=== PATIENT | female | born 1950 | race Caucasian/White ===

== ENCOUNTER → 2020-03-13 16:25 | Outpatient (CLI) | payer MEDICARE, SELFPAY ==
--- NOTE | ~2020-03-13 | XR_ITS ---
EXAMINATION: XR hand RT min 3V EXAM DATE: 03/13/2020 16:42 INDICATION: Osteoarthritis, pain and swelling 2nd mip joint, no known recent injury. TECHNIQUE: Right hand frontal, lateral and oblique projections obtained and reviewed. There is no pr ior study for comparison. FINDINGS: There is moderate 1st interphalangeal, 2nd distal interphalangeal and metacarpophalangeal p rimary osteoarthritis. Less osteoarthritis at the other digits. Surgical changes from trapezium resec tion. There are no bony erosions identified. Triangular fibrocartilage calcification. Chondrocalcinosis can be an age related finding, but with ot her possible etiologies including CPPD, parathyroid disorders, hemochromatosis, gout. IMPRESSION: 1. Polyarticular osteoarthritis. 2. Carpal surgical changes. Reviewed, dictated and finalized at location A. NISTRATIVE JUDGE
== END ==
PROVIDERS: Visit Provider Plastic Surgery
DX: M19.041 Primary osteoarthritis, right hand (principal)
CPT/HCPCS: 73130

== ENCOUNTER 2021-07-06 12:12 | Outpatient (CLI) | payer MEDICARE, SELFPAY ==
[2021-07-06 14:39] LABS: Urine Cotinine NEGATIVE
== END 2021-07-06 12:13 | disposition home or self-care (01) ==
LOC: ANHSURGERY 12:17
PROVIDERS: PCP Family Medicine; Visit Provider Orthopaedic Surgery
DX: Z01.812 Encounter for preprocedural laboratory examination (principal); M16.11 Unilateral primary osteoarthritis, right hip; Z51.81 Encounter for therapeutic drug level monitoring; Z79.899 Other long term (current) drug therapy
CPT/HCPCS: 80307; 86850; 86900; 86901; 87070; 87147; 87181; 87186

== ENCOUNTER 2021-07-18 00:26 | Day surgery (SDC) | payer MEDICARE, SELFPAY ==
[2021-07-06 12:27] VITALS: BMI 30.1
--- NOTE | 2021-07-06 13:11 | PC.NURSE ---
Report to the Outpatient Waiting Room, entrance under the green pavilion located off [facility], at time _1000 on date _07/18/21 . OR Time: 1200 . - You and your visitor will be asked a series of questions to screen for COVID 19 for your protection. - A mask is required within the hospital. Preoperative COVID Testing Requirements: No COVID Test needed if: (proof is required; if not received patient will have Rapid Test prior to entry) - Patient has received COVID Vaccine at least 14 days prior to procedure date or - Patient has positive COVID test result within last 90 days of surgery date. COVID Test needed if above criteria is not met If not COVID vaccinated a COVID test must be conducted within 72 hours of surgery and patient is asked to isolate self from time of testing until procedure. You will go to the [facility] for your COVID testing. The [facility] is located at the corner of [address] [facility]. You will only be called if COVID results are positive and your surgeon may reschedule your elective surgery date. Patients may have clear liquids (water, carbonated beverages, clear teas, apple juice) until 3 hours prior to surgery with a maximum of 20 ounces. - No food from midnight until time of surgery - Infants may have breast milk until 4 hours before surgery, formula 6 hours prior to surgery. - Children will be allowed to drink immediately following surgery. If applicable, please bring a bottle or sippy cup to assist with drinking. Juice, water, soda, and popsicles are readily available. For infants on formula, please bring formula the day of surgery. Pacifiers are allowed. Take the following medications with a SIP of water the morning of surgery: ___ALBUTEROL IF NEEDED,METOPROLOL,TRAMADOL IF NEEDED Medications to discontinue per physician PT STATES CONT._ASPIRIN_BUT DO NOT TAKE MORNING OF SURGERY.PT STATES ALL VITAMINS AND SUPPLEMENTS 7 DAYS PRE OP PER DR HUFFMAN Date to take last dose___07/14/21 Please no make-up, nail telugu, hairspray, perfume, deodorant, or body powder the day of surgery. No jewelry (including any body piercings) or valuables the day of surgery, leave them at home. Please take a shower or bath the night before, or the morning of, surgery with an antibacterial soap. Wear comfortable, loose fitting clothing. Children are encouraged to wear pajamas. - Jewelry must be removed prior to entering the operating room. Rings and piercings that are not removed may be cut off. - The hospital will not accept responsibility for valuables. - Please leave all valuables, including medications, at home the day of surgery. If you are going home after surgery, a licensed fleet driver must drive you home. - NO public transportation without another adult. - We recommend that an adult stay with you for 24 hours following discharge. - We also recommend that you do not drive, make important decision, drink alcoholic beverages, or take any drugs that were not prescribed by your health care provider for at least 24 hours after your discharge time. For Pediatric surgeries, we recommend two adults accompany the child home (only one inside the building at this time). One visitor will be allowed to accompany the patient into the hospital. Patients visitor will be instructed to remain with patient at all times or leave the building. We will allow the visitor to come back to the postoperative area when patient is ready. Follow any additional instructions given to you from your surgeon. VERBAL AND WRITTEN instructions given to PATIENT and asked if any additional questions and then verbalized understanding. Patient advised to call surgeon office or pre surgery nurse liaison [phone] if any additional questions.
[2021-07-06 13:26] VITALS: BP 171/81; PULSE 67; RESP 18; TEMP 36.9; O2SAT 100
--- NOTE | 2021-07-17 13:47 | WPDANESEPPF ---
Anes - Initial Pre Proc Eval Procedure: Operation Date: 07/18/21 12:00 Proposed Procedures p Right Total Hip Arthroplasty, Anterior Approach - Jon Jo MD Date/Time: 07/17/21 13:47 Surgeon: Jon Jo MD Pre Op Diagnosis: OA right hip Patient Data Age: 71 Gender: F Height: 1.57 m Weight: 74.7 kg Last Vital Signs Temp 36.9 C 07/06/21 13:26 Pulse 67 07/06/21 13:26 Resp 18 07/06/21 13:26 BP 171/81 H 07/06/21 13:26 Pulse Ox 100 07/06/21 13:26 Allergies Allergy/AdvReac Type Severity Reaction Status Date / Time lisinopril Allergy Severe Cough Verified 07/18/21 10:47 meperidine AdvReac Severe Nausea and Verified 07/18/21 10:47 Vomiting metformin AdvReac Diarrhea,NAUSEA Verified 07/18/21 10:47 AND VOMITING Home Medications Medication Instructions Recorded Confirmed Type acidophilus-pectin, citrus 1 cap PO DAILY 07/06/21 07/18/21 History [Acidophilus Probiotic] albuterol sulfate 2 puff INHALATION PRN PRN 07/06/21 07/18/21 History ascorbic acid (vitamin C) 500 mg PO DAILY 07/06/21 07/18/21 History aspirin [Adult Low Dose Aspirin] 81 mg PO DAILY 07/06/21 07/18/21 History atorvastatin 40 mg PO HS 07/06/21 07/18/21 History cholecalciferol (vitamin D3) 50 mcg PO DAILY 07/06/21 07/18/21 History coenzyme Q10 [CoQ-10] 200 mg PO DAILY 07/06/21 07/18/21 History cranberry 500 mg PO DAILY 07/06/21 07/18/21 History cyanocobalamin (vitamin B-12) 500 mcg PO DAILY 07/06/21 07/18/21 History esomeprazole magnesium 40 mg PO DAILY 07/06/21 07/18/21 History glucosamine sulfate [Glucosamine] 500 mg PO BID 07/06/21 07/18/21 History krill oil 500 mg PO DAILY 07/06/21 07/18/21 History loratadine 10 mg PO DAILY 07/06/21 07/18/21 History magnesium 400 mg PO DAILY 07/06/21 07/18/21 History melatonin 10 mg PO HS 07/06/21 07/18/21 History metoprolol tartrate 25 mg PO BID 07/06/21 07/18/21 History multivitamin [Multi-Vitamin] 1 tablet PO DAILY 07/06/21 07/18/21 History nystatin 1 applic TOPICAL BID 07/06/21 07/18/21 History triamcinolone acetonide [Kenalog] 1 applic TOPICAL BID 07/06/21 07/18/21 History vitamin E 45 mg PO DAILY 07/06/21 07/18/21 History zinc 50 mg PO DAILY 07/06/21 07/18/21 History Patient hx anesthesia problems: none Family hx anesthesia problems: none Results Review: All pre-operative results and documents have been reviewed as part of the pre-operative evaluation. [facility] Past Medical History Medical History Chronic GERD HTN (hypertension) Obesity Osteoarthritis TIA (transient ischemic attack) Social History Social History Smoking status: Never smoker Additional smoking assessment comments: DENIES ANY FORM OF TOBACCO USE Alcohol intake: current Alcohol use details: 2 DRINKS PER MONTH Living arrangements: with family Spiritual care concerns: No Anes - Eval Final PreProcedure Day of Procedure 07/17/21 13:47 Patient weight: obese Heart: regular rate and rhythm Lungs: clear to auscultation and normal air movement Airway: Mallampati scale class II Neurological: alert and oriented Last oral intake: >/= 8 hours ASA classification: III Emergent: no Anesthetic plan: proceed Anesthesia type and monitoring: general ETT Results Review: All pre-operative results and documents have been reviewed as part of the pre-operative evaluation. Informed Consent: The patient's anesthetic plan and its attendant risks and benefits were discussed with the patient/family/POA. Questions were solicited and answers provided to the satisfaction of the patient/family/POA.
[2021-07-18] VITALS (13 sets, daily range): BP systolic 113–175; BP diastolic 54–80; PULSE 63–88; RESP 10–22; TEMP 35.9–36.5; O2SAT 97–100; BMI 30.8
--- NOTE | ~2021-07-18 | XR_ITS ---
EXAMINATION: XR surgery orthopedic DATE: 07/18/2021 15:33 INDICATION: Anterior approach right total hip arthroplasty TECHNIQUE: Single frontal image of the right hip was obtained during procedure performed by Dr. Praveen bauer. Radiologist was not present for the imaging or procedure. The amount of fluoroscopy time used dur ing this procedure was 1.2 minutes. COMPARISON: None. FINDINGS: Right total hip arthroplasty which appears in near-anatomic alignment. Small high attenuation likely suture anchor at the right pubic body. No fracture. IMPRESSION: 1. Expected appearance during right total hip arthroplasty. See procedure note for further detail. Reviewed, dictated and finalized at location A.
--- NOTE | ~2021-07-18 | XR_ITS ---
EXAMINATION: XR hip RT 1V w AP pelvis DATE: 07/18/2021 15:55 INDICATION: Total right hip arthroplasty. Postop. TECHNIQUE: An anteroposterior view of the pelvis and single view of right hip were obtained. COMPARISON: None. FINDINGS: There is a total right hip arthroplasty in near-anatomic alignment. No fracture. There is m ild left hip osteoarthritis. There is a surgical drain the right hip. There are suture anchors in the pubic bones. IMPRESSION: 1. Total right hip arthroplasty in near-anatomic alignment. Reviewed, dictated and finalized at location B.
--- NOTE | 2021-07-18 09:52 | PM.IMHP ---
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 She has been having symptoms in her right leg for over 9 months. She has had x-rays done of the right hip which show moderately severe arthritis. She has had an MRI scan and a CT scan of the hip showing significant cystic changes in the subchondral bone in the acetabulum as well. she has tried different nonsurgical treatment for the symptoms in her leg. Unfortunately she has not had substantial improvement. The option of total arthroplasty was discussed with her and she feels that she is having enough symptoms on a daily basis that she would like to proceed with that and presents today for that. Chief Complaint: Right hip DJD Review of Systems Review of Systems: All systems reviewed & are unremarkable except as noted in HPI and below PMFSH Past Medical History Medical History Chronic GERD HTN (hypertension) Obesity Osteoarthritis TIA (transient ischemic attack) Social History Social History Smoking status: Never smoker Additional smoking assessment comments: DENIES ANY FORM OF TOBACCO USE Alcohol intake: current Alcohol use details: 2 DRINKS PER MONTH Living arrangements: with family Spiritual care concerns: No Meds Home Medications and Allergies Home Medications Medication Instructions Recorded Confirmed Type acidophilus-pectin, citrus 1 cap PO DAILY 07/06/21 07/06/21 History [Acidophilus Probiotic] albuterol sulfate 2 puff INHALATION PRN PRN 07/06/21 07/06/21 History ascorbic acid (vitamin C) 500 mg PO DAILY 07/06/21 07/06/21 History aspirin [Adult Low Dose Aspirin] 81 mg PO DAILY 07/06/21 07/06/21 History atorvastatin 40 mg PO HS 07/06/21 07/06/21 History cholecalciferol (vitamin D3) 50 mcg PO DAILY 07/06/21 07/06/21 History coenzyme Q10 [CoQ-10] 200 mg PO DAILY 07/06/21 07/06/21 History cranberry 500 mg PO DAILY 07/06/21 07/06/21 History cyanocobalamin (vitamin B-12) 500 mcg PO DAILY 07/06/21 07/06/21 History esomeprazole magnesium 40 mg PO DAILY 07/06/21 07/06/21 History glucosamine sulfate [Glucosamine] 500 mg PO BID 07/06/21 07/06/21 History krill oil 500 mg PO DAILY 07/06/21 07/06/21 History loratadine 10 mg PO DAILY 07/06/21 07/06/21 History magnesium 400 mg PO DAILY 07/06/21 07/06/21 History melatonin 10 mg PO HS 07/06/21 07/06/21 History metoprolol tartrate 25 mg PO BID 07/06/21 07/06/21 History multivitamin [Multi-Vitamin] 1 tablet PO DAILY 07/06/21 07/06/21 History nystatin 1 applic TOPICAL BID 07/06/21 07/06/21 History tramadol 50 mg PO PRN PRN 07/06/21 07/06/21 History triamcinolone acetonide [Kenalog] 1 applic TOPICAL BID 07/06/21 07/06/21 History vitamin E 45 mg PO DAILY 07/06/21 07/06/21 History zinc 50 mg PO DAILY 07/06/21 07/06/21 History Allergies Allergy/AdvReac Type Severity Reaction Status Date / Time lisinopril Allergy Severe Cough Verified 07/06/21 12:31 meperidine AdvReac Severe Nausea and Verified 07/17/21 13:54 Vomiting metformin AdvReac Diarrhea,NAUSEA Verified 07/06/21 12:31 AND VOMITING Exam Narrative: 71-year-old female alert pleasant. Patient walks with a mild limp. She complains of medial thigh and medial knee pain with Weightbearing on the right leg. Her right hip flexes to 125 with groin pain internal rotation to 35 and external rotation 40? all with mild lateral hip soreness. She has severe groin pain with Stinchfield maneuver. She has mild weakness with abductor testing in lateral position. Mild tenderness over the greater trochanter to palpation. Has 5/5 strength in all muscle groups right lower extremity. Normal light touch sensation right lower extremity. Skin around the hip and groin crease for all normal. 2+ dorsalis pedis pulse and posterior tibial artery pulse
[2021-07-18] MEDS: LACTATED RINGERS 1,000 ML 30 ML IV CONT ×2 (10:35→15:58)
[2021-07-18] MEDS: ACETAMINOPHEN 500 MG TABLET 1000 MG PO ×3 (10:36→23:22)
[2021-07-18] MEDS: TRANEXAMIC ACID 1,000MG/ISO100 1,000 MG/100 ML BAG 200 MG IVPB (10:36)
--- NOTE | 2021-07-18 11:47 | WPDHPUPDATE1 ---
History and Physical Update Update Date/Time: 07/18/21 11:47 History and Physical has been reviewed, including an updated exam of the patient. There are NO changes in the patient's condition. Risks, benefits, and alternatives have been discussed and questions answered. Patient agrees to proceed with procedure.
[2021-07-18] MEDS: ceFAZolin 2 GM/D5W 50 ML 2 GM/50 ML BAG IVPB (12:10)
[2021-07-18] MEDS: ceFAZolin SODIUM 1 GM VIAL 3 GM IRRIGATION (13:07)
[2021-07-18] MEDS: TRANEXAMIC ACID 1,000 MG/10 ML AMPUL 1000 MG IV PUSH (15:23)
[2021-07-18] MEDS: ceFAZolin SODIUM 1 GM VIAL IV PUSH (15:25)
--- NOTE | 2021-07-18 15:53 | W.PM.PROC2 ---
Procedure Note - Detailed Date of Procedure 07/18/21 Pre-op Diagnosis OA right hip Post-op Diagnosis Same Procedure Performed Right total hip arthroplasty Surgeon Jon Jo MD Animal Care Specialist Celia Anesthesia General Description of Procedure Patient was brought to the operating room and general anesthesia was administered. She received 2 g of Ancef weight based vancomycin and 1 g of tranexamic acid preoperatively. Boots were applied to the feet carefully padded and she was transferred to the [facility] [place] table and the right hip prepped draped usual fashion. A 10 cm longitudinal incision was made starting 3 cm lateral to the ASIS. Dissection was carried down to the fascia over the tensor fascia nisha which was longitudinally incised elevated off the anterior 1/2 of the TFL muscle. The main single bundle of vessels from ascending lateral femoral circumflex vessels were isolated ligated with suture divided. Retractor was placed in the anterior capsule and the hip abducted internally rotated and the gluteus minimus elevated off the lateral capsule. An inverted T capsulotomy was performed. Femoral neck osteotomy was made according to preoperative templating. The femoral head measured 43 mm in diameter. The acetabulum was exposed. There was severe maceration of the inner surface of the acetabular labrum circumferentially and evidence of chondrocalcinosis that we saw on x-rays. Labrum was excised remaining articular cartilage curetted. The femoral neck osteotomy was seen under fluoro to be at the proper height. The femur was externally rotated and extended and we incised the interval between piriformis tendon and conjoined tendon which allowed the piriformis to flip. We did not recess the conjoined tendon as hip did not seem to be tight enough to warrant with the leg back in the horizontal position external rotation and traction the acetabulum was exposed and prepared. We medialized to the medial wall with the 45 Reamer. Her acetabular fossa was very shallow as we saw on the x-ray view. The 46 trial was tight we reamed lightly with the 46 Reamer and chose the 46 pinnacle shell. This seated fully but did not get the usual purchase that I would expect and this left the posterior shell a bit prominent more than desirable and superolateral prominence of the shell due to the shallowness of the socket. We were flush with the ileal ischial line that I felt we could ream in a little bit farther and get better fixation and bony contact. We we did this with a 45 Reamer reamed in about 3 mm more in line with the direction of the shelf and tried to reinsert the 46 shell but it would not seat. It became tight but remained about 2 mm proud from full seating and would not go further. We had adequate purchase but I did not feel the bone contact is optimal therefore we reamed lightly with the 46 Reamer again and after thorough irrigation of the cup again we placed it and this time the cup seated to within about 0.5 mm of contact with the medial wall with excellent press fit and much better coverage and the security of the fixation seemed excellent. We placed a single screw into the ilium and impacted the 28 mm inner diameter polyethylene liner. The cup was placed at 40? of abduction anteversion such that the anterior rim of the cup was flush with the anterior rim of the acetabular fossa this left the posterior rim of few mm proud. The femur was externally rotated and extended. We broached to a size 3 which seemed to give good purchase and torsional stability. We trialed the and we found that the hip required more offset than our preoperative templating I little bit. We checked the torsional stability again and I could see a little bit of wiggle in the 3 at this point and we were able to see before which is a very tight nice fit. On trialing we found that the high offset 4 stem with the +1 head recreated the leg lengths and gave appropriate stability the size 4 high offset Act
[2021-07-18] MEDS: fentaNYL CITRATE INJ (*CRX) 100 MCG/2 ML VIAL 25 MCG IV PUSH ×4 (16:44→16:53)
--- NOTE | 2021-07-18 17:20 | ADMGEN ---
This patient, Frida Schmidt, was admitted to Medical Room 248-. Patient/family oriented to hospital policies and general routines including ID bracelet, bed and alarms, visiting hours, pain management, procedures, bathroom and other care routines, personal items, smoking policy, room service/diet, and visiting hours. Information on how to activate the Rapid Response Team has been discussed. Patient/Family are encouraged to report perceived risks to care and to ask questions if they do not understand what they are told or what they should do.
[2021-07-18] MEDS: SENNA/DOCUSATE SODIUM TABLET 2 TAB PO (17:59)
[2021-07-18] MEDS: oxyCODONE HCL (*CRX) 5 MG TAB IR PO (18:01)
[2021-07-18] MEDS: ALBUTEROL SULFATE (*SP) AEROSOL 1 PUFF 2 PUFF INHALATION (18:06)
[2021-07-18] MEDS: METOPROLOL TARTRATE 25 MG TABLET PO (20:17)
[2021-07-18] MEDS: FAMOTIDINE 20 MG TABLET PO (20:18)
[2021-07-18] MEDS: ATORVASTATIN 40 MG TABLET PO (20:18)
[2021-07-18] MEDS: ONDANSETRON INJ 4 MG/2 ML VIAL IV PUSH (21:11)
[2021-07-18 22:13] LABS: Glucose Point of Care 207 mg/dl (65-105)
[2021-07-18] MEDS: diphenhydrAMINE HCl CAP 25 MG CAPSULE 50 MG PO (23:23)
[2021-07-19] MEDS: oxyCODONE HCL (*CRX) 5 MG TAB IR PO ×5 (00:06→13:01)
[2021-07-19] MEDS: MORPHINE SULFATE (*CRX) 2 MG/ML INJ IV PUSH (01:19)
[2021-07-19 01:53] VITALS: BP 136/64; PULSE 91; RESP 14; TEMP 36.4; O2SAT 99
[2021-07-19 04:54] VITALS: BP 116/58; PULSE 92; RESP 16; TEMP 36.4; O2SAT 99
[2021-07-19] MEDS: ACETAMINOPHEN 500 MG TABLET 1000 MG PO ×2 (05:23→12:08)
[2021-07-19 05:34] LABS: Basophils Percent Auto 0.2 % (0.2-1.2); Hematocrit 31.6 % (37.0-47.0); Hemoglobin 10.4 g/dL (12.0-15.0); Immature Granulocyte Absolute 0.06 K/mm3 (0.00-0.031); Immature Granulocyte Percent A 0.4 % (0-0.5); Lymphocytes Absolute Auto 1.21 K/mm3 (0.9-3.2); Lymphocytes Percent Auto 8.3 % (18.3-44.2); Mean Corpuscular HGB Conc 32.9 g/dl (32-36); Mean Corpuscular Hemoglobin 29.5 pg (26-34); Mean Corpuscular Volume 89.5 fl (80-100); Mean Platelet Volume 10.9 fl (7.4-10.4); Monocytes Absolute Auto 1.3 K/mm3 (0.1-0.6); Monocytes Percent Auto 8.5 % (2.6-8.5); Neutrophils Absolute Auto 12.1 K/mm3 (1.3-6.7); Neutrophils Percent Auto 82.6 % (45.5-73.1); Platelet Count Result 193 k/mm3 (150-375); Red Blood Count 3.53 M/mm3 (4.2-5.4); Red Cell Distribution Width 12.6 % (11.5-14.5); White Blood Count 14.6 K/mm3 (4.5-10.0)
[2021-07-19 05:56] LABS: Anion Gap 7 mmol/L (8-16); Blood Urea Nitrogen 13 mg/dL (7-17); Calcium 8.4 mg/dL (8.4-10.2); Carbon Dioxide 23 mmol/L (22-30); Chloride 99 mmol/L (98-107); Estimated CRCL calculation 52 ml/min; Estimated Glomerular Filt Rate > 60; Glucose 121 mg/dL (65-110); Potassium 4.1 mmol/L (3.4-5.0); Sodium 129 mmol/L (137-145)
--- NOTE | 2021-07-19 07:26 | PM.PNORT ---
Subjective Subjective Date/Time Seen: 07/19/21 07:26 POD 1 alert avss, drain is out and dressing changed-incision is dry, NVI, pt was having nausea overnight-no vomiting, had pain control issues overnight. pain is well controlled now, has not been up yet, pt is wanting to go home today, labs-noted, pt will work with PT today and plan to send home when IV abx are done Objective Data Vital Signs Vital Signs: Vital Signs - 24 hr 07/18/21 10:50 07/18/21 15:58 07/18/21 16:00 Temperature 36.1 C L 36.5 C Pulse Rate 76 72 86 Respiratory Rate 18 10 L 14 Blood Pressure 175/80 H 113/56 L 130/76 Pulse Oximetry 100 100 100 07/18/21 16:15 07/18/21 16:30 07/18/21 16:45 Temperature Pulse Rate 82 71 63 Respiratory Rate 15 16 12 Blood Pressure 141/79 H 127/61 128/60 Pulse Oximetry 100 100 100 07/18/21 17:00 07/18/21 17:10 07/18/21 17:30 Temperature 35.9 C L Pulse Rate 63 78 65 Respiratory Rate 12 15 14 Blood Pressure 124/54 L 141/66 H 140/64 Pulse Oximetry 98 97 100 07/18/21 17:45 07/18/21 18:15 07/18/21 18:49 Temperature 36.1 C L 36.2 C L 36.4 C Pulse Rate 63 83 88 Respiratory Rate 14 22 H 16 Blood Pressure 144/62 H 140/63 147/75 H Pulse Oximetry 100 100 98 07/18/21 20:17 07/19/21 01:53 07/19/21 04:54 Temperature 36.4 C 36.4 C Pulse Rate 88 91 92 Respiratory Rate 14 16 Blood Pressure 136/64 116/58 L Pulse Oximetry 99 99 Intake/Output Intake/Output: Intake & Output 07/16/21 07/17/21 07/18/21 07/19/21 23:59 23:59 23:59 23:59 Intake Total 490 600 Output Total 800 2100 Balance -310 -1500 Meds/Results Medications: Active Medications Generic Name Dose Route Start Last Admin Trade Name Freq PRN Reason Stop Dose Admin Acetaminophen 1,000 mg 07/18/21 18:00 07/19/21 05:23 Acetaminophen 500 Mg Tablet PO 1,000 mg Q6HR WAGNER Administration Al Hydrox/Mg Hydrox/Simethicone 30 ml 07/18/21 17:04 Mag Hydrox/Al Hydrox/Simeth 30 Ml Udc PO Q6H PRN Indigestion Albuterol 2 puff 07/18/21 17:04 07/18/21 18:06 Albuterol Sulfate (*Sp) Aerosol 1 Puff INHALATION 2 puff PRN PRN Administration Shortness Of Breath Apixaban 2.5 mg 07/19/21 09:00 Apixaban 2.5 Mg Tablet PO 08/22/21 21:01 Q12HR WAGNER Atorvastatin Calcium 40 mg 07/18/21 21:00 07/18/21 20:18 Atorvastatin 40 Mg Tablet PO 40 mg HS WAGNER Administration Celecoxib 200 mg 07/19/21 09:00 Celecoxib 200 Mg Capsule PO DAILY WAGNER Famotidine 20 mg 07/18/21 21:00 07/18/21 20:18 Famotidine 20 Mg Tablet PO 20 mg Q12HR WAGNER Administration Hydroxyzine HCl 50 mg 07/18/21 17:04 Hydroxyzine Hcl 25 Mg Tablet PO Q4H PRN Itching Vancomycin HCl 1,000 mg in 250 mls @ 250 mls/hr 07/18/21 23:00 07/19/21 00:00 Vancomycin 1,000 Mg/D5w 250 Ml IVPB 07/19/21 11:59 Infused Q12H WAGNER Infusion Cefazolin Sodium 1 gm in 50 mls @ 100 mls/hr 07/18/21 20:00 07/19/21 05:20 Ancef 1 Gm/D5w 50 Ml Pm IVPB 07/19/21 12:29 Infused Q8H WAGNER Infusion Loratadine 10 mg 07/19/21 09:00 Loratadine 10 Mg Tablet PO DAILY WAGNER Metoprolol Tartrate 25 mg 07/18/21 21:00 07/18/21 20:17 Metoprolol Tartrate 25 Mg Tablet PO 25 mg Q12HR WAGNER Administration Morphine Sulfate 2 mg 07/18/21 17:04 07/19/21 01:19 Morphine Sulfate (*Crx) 2 Mg/Ml Inj IV PUSH 2 mg Q3H PRN Administration Pain Rated 7-10 Naloxone HCl 0.1 mg 07/18/21 17:04 Naloxone Hcl 0.4 Mg/Ml Vial IV PUSH Q2M PRN Opiate Reversal Ondansetron HCl 4 mg 07/18/21 17:04 07/18/21 21:11 Ondansetron Inj 4 Mg/2 Ml Vial IV PUSH 4 mg Q4H PRN Administration Nausea And Vomiting Oxycodone HCl 5 mg 07/18/21 17:04 07/18/21 18:01 Oxycodone Hcl (*Crx) 5 Mg Tab Ir PO 5 mg Q4H PRN Administration Pain Rated 4-6 Oxycodone HCl 5 mg 07/18/21 21:00 07/19/21 04:46 Oxycodone Hcl (*Crx) 5 Mg Tab Ir PO 5 mg Q4HR WAGNER Administration Polyethylene Glycol 17 gm 0
--- NOTE | 2021-07-19 07:36 | PM.DS ---
DS: Admitting Diagnosis Discharge Date 07/19 Admitting Diagnosis Right hip DJD DS: Summary Hospital Course Hospital Course: Stable Time Spent with Patient Time attestation: Total time spent providing and/or coordinating discharge services: 71-year-old female who underwent right anterior total arthroplasty on 07/18. Went to procedure without complications. Postoperatively she been afebrile vital signs was stable. She did have some nausea overnight on day of surgery. Most likely contributing to narcotics on an empty stomach. No episodes of vomiting. The patient is weight-bearing as tolerated. The drain is out. Her incision is dry. Neurovascularly she is intact. Hemoglobin is 10.4 postop day 1. Patient will work with therapy she continues to do well she will be discharged home on 07/19. Patient is on scheduled Tylenol as well as oxycodone 5 mg for pain control. She is on 10 day course of Celebrex 200 mg. He is also on a 2 week course of Bactrim DS due to a positive nasal swab for MRSA. She also go home on Senokot MiraLax for constipation. She is on Eliquis for DVT prophylaxis for 5 weeks. Patient was advised any questions or concerns when she goes home she is to call the office otherwise we will see her at her point to date. DS: Data Data Completed and Pending Labs on day of discharge: Labs from last 24 hours 07/19/21 07/19/21 07/18/21 04:54 04:54 22:08 WBC 14.6 H RBC 3.53 L Hgb 10.4 L Hct 31.6 L MCV 89.5 MCH 29.5 MCHC 32.9 RDW 12.6 Plt Count 193 MPV 10.9 H Immature Gran % (Auto) 0.4 Neut % (Auto) 82.6 H Lymph % (Auto) 8.3 L [place] % (Auto) 8.5 Eos % (Auto) 0.0 Baso % (Auto) 0.2 Lymph # (Auto) 1.21 [place] # (Auto) 1.3 H Eos # (Auto) 0.0 Baso # (Auto) 0.0 Abs Immat Gran (auto) 0.06 H Absolute Neuts (auto) 12.1 H Absolute Nucleated RBC 0.0 Nucleated RBC % 0.0 Sodium 129 L Potassium 4.1 Chloride 99 Carbon Dioxide 23 Anion Gap 7 L BUN 13 Creatinine 0.80 Estim Creat Clear Calc 52 Estimated GFR > 60 Glucose 121 H POC Capillary Glucose 207 H Calcium 8.4 Discharge Plan Discharge Patient Disposition: Home, Self-Care Discharge Instructions: [facility], [place] [id number] [place] [address] POST-OPERATIVE DISCHARGE INSTRUCTIONS ANTERIOR TOTAL HIP ARTHROPLASTY 1. Move toes/feet up and down every hour while awake. 2. Be up walking every hour while awake. 3. Use cane in hand opposite of side of hip surgery or walker as comfort allows. Avoid sitting in a chair unless eating, receiving visitors or using the toilet. 4. When resting, lie on back with leg elevated above heart to minimize swelling. Significant swelling could indicate a blood clot and if this occurs, call the office (or go to the ER) to have a venous ultrasound performed. 5. Wound Care: Keep dry sponge on wound for 2 weeks. Use minimal tape. 6. May shower with dressing off. Patient Instructions: Apixaban (By mouth) Follow-up/Referrals: Jon Jo MD [Physician] - Keep Reg. Scheduled Appt. Discharge Medications: New acetaminophen 500 mg Tablet 1,000 mg PO Q6HR Qty: 90 RF: 0 Eliquis 2.5 mg Tablet 2.5 mg PO Q12HR Qty: 27 RF: 0 celecoxib [Celebrex] 200 mg Capsule 200 mg PO DAILY Qty: 10 RF: 0 sennosides-docusate sodium [Senokot-S] 8.6-50 mg Tablet 2 tab-cap PO BID Qty: 60 RF: 0 oxycodone 5 mg Tablet 5 mg PO Q4HR Qty: 40 RF: 0 polyethylene glycol 3350 [Miralax] 17 gram Powder In Packet 17 g PO QAM Qty: 30 RF: 0 sulfamethoxazole-trimethoprim 800-160 mg Tablet 2 tablet PO Q12HR Qty: 28 RF: 0 Continued albuterol sulfate 90 mcg/actuation HFA aerosol inhaler 2 puff INHALATION PRN PRN (Reason: Shortness Of Breath) RF: 0 atorvastatin 40 mg tablet 40 mg PO HS RF: 0 triamcinolone acetonide
[2021-07-19] MEDS: APIXABAN 2.5 MG TABLET PO (09:16)
[2021-07-19] MEDS: CELECOXIB 200 MG CAPSULE PO (09:16)
[2021-07-19] MEDS: CHOLECALCIFEROL 1,000 UNITS TABLET 2000 UNITS PO (09:16)
[2021-07-19] MEDS: polyethylene glycoL 3350 17 GM POWD.PACK PO (09:17)
[2021-07-19] MEDS: SENNA/DOCUSATE SODIUM TABLET 2 TAB PO (09:17)
[2021-07-19] MEDS: LORATADINE 10 MG TABLET PO (09:17)
[2021-07-19] MEDS: FAMOTIDINE 20 MG TABLET PO (09:17)
[2021-07-19 09:18] VITALS: PULSE 80
[2021-07-19] MEDS: METOPROLOL TARTRATE 25 MG TABLET PO (09:18)
[2021-07-19 09:27] VITALS: PULSE 93; RESP 16; TEMP 36.4; O2SAT 98
[2021-07-19 09:39] VITALS: BP 120/60
--- NOTE | 2021-07-19 10:56 | WPDANESPN ---
Anes - Prog Note Post-Op Date/Time: 07/19/21 10:56 Cardiovascular status: normal Respiratory status: normal Airway patency: baseline Mental status: baseline Post-Op hydration status: normal Vital Signs: Last Vital Signs Temp 36.4 C 07/19/21 09:27 Pulse 93 07/19/21 09:27 Resp 16 07/19/21 09:27 BP 120/60 07/19/21 09:39 Pulse Ox 98 07/19/21 09:27 Pain Score (VAS): 06/07 I/O: Intake & Output 07/18/21 07/19/21 07/19/21 23:59 07:59 15:59 Intake Total 440 600 240 Output Total 800 2100 Balance -360 -1500 240 Laboratory Tests 07/19/21 04:54 07/19/21 04:54 07/18/21 07/19/21 07/19/21 22:08 04:54 04:54 WBC 14.6 H RBC 3.53 L Hgb 10.4 L Hct 31.6 L MCV 89.5 MCH 29.5 MCHC 32.9 RDW 12.6 Plt Count 193 MPV 10.9 H Immature Gran % (Auto) 0.4 Neut % (Auto) 82.6 H Lymph % (Auto) 8.3 L [place] % (Auto) 8.5 Eos % (Auto) 0.0 Baso % (Auto) 0.2 Lymph # (Auto) 1.21 [place] # (Auto) 1.3 H Eos # (Auto) 0.0 Baso # (Auto) 0.0 Abs Immat Gran (auto) 0.06 H Absolute Neuts (auto) 12.1 H Absolute Nucleated RBC 0.0 Nucleated RBC % 0.0 Sodium 129 L Potassium 4.1 Chloride 99 Carbon Dioxide 23 Anion Gap 7 L BUN 13 Creatinine 0.80 Estim Creat Clear Calc 52 Estimated GFR > 60 Glucose 121 H POC Capillary Glucose 207 H Calcium 8.4 Post-procedural complaints: none Patient Feedback: Patient satisfied with anesthetic care.
--- NOTE | 2021-07-19 11:03 | PCCCNOTE ---
On 07/19/21, the student, [Yesenia Gracia], provided care and completed [facility] documentation on this patient. I have reviewed the student's documentation and agree with the findings.
--- NOTE | 2021-07-19 14:00 | PC.NURSE ---
On 07/19/21, the student, [Eugene Tucker, Robyn Lawson], provided care and completed [facility] documentation on this patient. I have reviewed the student's documentation and agree with the findings.
== END 2021-07-19 13:44 | disposition home or self-care (01) ==
LOC: ANHSURGERY 09:56 → ANH2MED 17:13
PROVIDERS: Physician Assistant Surgical; Visit Provider Orthopaedic Surgery
PROC: (CPT 27130; principal; 2021-07-18 12:00)
DX: M16.11 Unilateral primary osteoarthritis, right hip (principal); G89.18 Other acute postprocedural pain; R11.0 Nausea; I10 Essential (primary) hypertension; K21.9 Gastro-esophageal reflux disease without esophagitis; Z86.73 Personal history of transient ischemic attack (TIA), and cerebral infarction without residual deficits; E66.9 Obesity, unspecified; Z68.30 Body mass index [BMI] 30.0-30.9, adult; Z79.51 Long term (current) use of inhaled steroids; Z79.82 Long term (current) use of aspirin
CPT/HCPCS: 27130; 36415; 73501; 80048; 80307; 82948; 85025; 86850; 86900; 86901; 87070; 87147; 87181; 87186; 94640; 97110; 97161; 97165; 97535; A9270; C1713; C1776; J0171; J0690; J1100; J1170; J2250; J2270; J2370; J2405; J2704; J2710; J2795; J3010; J3370; J7120

== ENCOUNTER 2021-07-28 13:02 | Outpatient (CLI) | payer MEDICARE, SELFPAY ==
--- NOTE | ~2021-07-28 | US_ITS ---
US venous doppler LE RT DATE: 07/28/2021 13:31 INDICATION: Postoperative swelling of right lower extremity TECHNIQUE: Real-time and color flow imaging and Doppler analysis of the veins of the right lower extr emity COMPARISON: None FINDINGS: Right greater saphenous vein is patent. There is spontaneous and phasic flow and normal aug mentation and color flow signal and normal compression of the deep veins of the right lower extremity . IMPRESSION: No evidence of deep venous thrombosis of right lower extremity Reviewed, dictated and finalized at [facility] Reviewed, dictated and finalized at [facility].
== END 2021-07-28 13:03 | disposition home or self-care (01) ==
PROVIDERS: Visit Provider Orthopaedic Surgery
DX: M79.89 Other specified soft tissue disorders (principal)
CPT/HCPCS: 93971

== ENCOUNTER 2023-05-25 11:27 | Emergency (ER) | payer MEDICARE, SELFPAY ==
[2023-05-25 12:03] VITALS: BP 155/99; PULSE 77; RESP 16; TEMP 36.4; O2SAT 99
--- NOTE | 2023-05-25 12:28 | ED.URI ---
HPI - URI/Sore Throat General Chief Complaint: Upper Respiratory Infection Stated Complaint: SORE THROAT/SINUS DRAINAGE/COUGH Time Seen by Provider: 05/25/23 11:31 Source: patient Mode of arrival: ambulatory Limitations: no limitations History of Present Illness HPI Narrative: Cyndi is a 73-year-old female patient presenting to the clinic today with complaints of scratchy throat, sinus drainage and cough x1 day. She reports she is wanting to be treated for a sinus infection as she develops recurrent sinus infection. States she is going out of town tomorrow for 2 months tomorrow. She denies any fever, chills, or body aches MD elicited complaint: cough, sore throat and nasal congestion Related Data Home Medications Medication Instructions Recorded Confirmed acidophilus 100 million 1 cap PO DAILY 07/06/21 11/25/22 cell-pectin, citrus 10 mg capsule albuterol sulfate 90 mcg/actuation 2 puff inhalation PRN PRN 07/06/21 11/25/22 aerosol inhaler Shortness Of Breath ascorbic acid (vitamin C) 500 mg 500 mg PO DAILY 07/06/21 11/25/22 chewable tablet atorvastatin 40 mg tablet 40 mg PO HS 07/06/21 11/25/22 cholecalciferol (vitamin D3) 50 50 mcg PO DAILY 07/06/21 11/25/22 mcg (2,000 unit) tablet coenzyme Q10 100 mg capsule 200 mg PO DAILY 07/06/21 11/25/22 (CoQ-10) cranberry 500 mg capsule 500 mg PO DAILY 07/06/21 11/25/22 cyanocobalamin (vitamin B-12) 500 500 mcg PO DAILY 07/06/21 11/25/22 mcg tablet esomeprazole magnesium 40 mg 40 mg PO DAILY 07/06/21 11/25/22 capsule,delayed release glucosamine sulfate 500 mg tablet 500 mg PO BID 07/06/21 11/25/22 (Glucosamine) loratadine 10 mg tablet 10 mg PO DAILY 07/06/21 11/25/22 magnesium 200 mg tablet 400 mg PO DAILY 07/06/21 11/25/22 melatonin 10 mg tablet,extended 10 mg PO HS 07/06/21 11/25/22 release metoprolol tartrate 25 mg tablet 25 mg PO BID 07/06/21 11/25/22 multivitamin 1 tablet PO DAILY 07/06/21 11/25/22 nystatin 100,000 unit/gram topical 1 applic topical BID 07/06/21 11/25/22 ointment triamcinolone acetonide 0.5 % 1 applic topical BID 07/06/21 11/25/22 topical ointment vitamin E 400 unit tablet 45 mg PO DAILY 07/06/21 11/25/22 zinc 50 mg capsule 50 mg PO DAILY 07/06/21 11/25/22 Allergies Allergy/AdvReac Type Severity Reaction Status Date / Time lisinopril Allergy Severe Cough Verified 05/25/23 11:58 meperidine AdvReac Severe Nausea and Verified 05/25/23 11:58 Vomiting metformin AdvReac Diarrhea,NAUSEA Verified 05/25/23 11:58 AND VOMITING Review of Systems Review of Systems: Pertinent positives per HPI. Patient denies any fever, chills, rash, headache, visual changes, dizziness, shortness of breath, chest pain, palpitations, nausea, vomiting, diarrhea, constipation, abdominal pain, or any urinary issues. [facility] Past Medical History Medical History (Updated 05/25/23 @ 12:30 by Mahin Cantrell APRN) Back pain pinched nerve L4-L5 Chronic GERD HTN (hypertension) Obesity Osteoarthritis Screening mammogram, encounter for TIA (transient ischemic attack) Surgical History Surgical History H/O: hysterectomy (~03/31/07) JOSE LUIS BSO & LAP JEANNA - 8 CM FIBROID History of right hip replacement (07/18/21) Social History Social History Smoking status: Never smoker Additional smoking assessment comments: DENIES ANY FORM OF TOBACCO USE Alcohol intake: current Alcohol use details: 2 DRINKS PER MONTH Substance use: never Substance use type: does not use Lack of Transportation: No Lack of Food: Never True Current Housing: I Have Housing Concerned About Future Housing: No Difficulty Paying Gas/Electric Bills: No Difficulty Paying for Meds: No Currently Unemployed: No Education: Associate Degree Difficulty w/ Childcare or Family Care: No Living arrangements: other Additional living arrang
== END 2023-05-25 12:41 | disposition home or self-care (01) ==
PROVIDERS: Emergency Provider Nurse Practitioner Family
DX: J06.9 Acute upper respiratory infection, unspecified (principal); Z20.822 Contact with and (suspected) exposure to COVID-19; K21.9 Gastro-esophageal reflux disease without esophagitis; I10 Essential (primary) hypertension; E66.9 Obesity, unspecified; Z68.30 Body mass index [BMI] 30.0-30.9, adult; M19.90 Unspecified osteoarthritis, unspecified site; Z86.73 Personal history of transient ischemic attack (TIA), and cerebral infarction without residual deficits; Z96.641 Presence of right artificial hip joint
CPT/HCPCS: 87426; 87804; 99213; G0463

== ENCOUNTER 2024-08-30 12:53 | Outpatient (CLI) | payer MEDICARE, SELFPAY ==
--- NOTE | ~2024-08-30 | MR_ITS ---
MRI of the lumbar spine Clinical History: Radiculopathy Technique: Axial T2-weighted images, and sagittal T1-weighted, T2-weighted, and and T2 fat-sat images were acquired. Findings: There is no fracture or sublocation of the lumbar spine. Vertebral bodies maintain normal h eight and alignment. No bone marrow signal abnormality seen. At L1-L2, there is severe degenerative disc narrowing. There is mild disc bulge with moderate facet a rthropathy. No central canal stenosis or neural foraminal narrowing. At L2-L3, there is mild disc bulge with mild facet arthropathy. No central canal stenosis or neural f oraminal narrowing. At L3-L4, there is mild disc bulge with mild to moderate facet arthropathy. No central canal stenosis or neural foraminal narrowing. At L4-L5, there is moderate to advanced disc narrowing. There is diffuse disc bulge with advanced fac et arthropathy. There is advanced spinal canal stenosis/thecal sac compression. There is severe left neural foraminal narrowing. Right neural foramen preserved. At L5-S1, there is severe degenerative disc narrowing. There is mild disc bulge and mild facet arthro amrita. No central canal stenosis. There is moderate to advanced right neural foraminal narrowing. Lef t neural foramen is preserved. Paravertebral soft tissues are unremarkable. Impression: Moderate degenerative spondylosis overall, as detailed above. Reviewed, dictated and finalized at [facility]. Impression: Moderate degenerative spondylosis overall, as detailed above.
== END 2024-08-30 12:54 | disposition home or self-care (01) ==
LOC: GOSHIMG 12:55
PROVIDERS: PCP Neurological Surgery
DX: M47.26 Other spondylosis with radiculopathy, lumbar region (principal)
CPT/HCPCS: 72148

== ENCOUNTER 2025-02-07 11:00 | Outpatient (RCR) | payer MEDICARE, SELFPAY ==
--- NOTE | 2024-12-13 14:38 | OPREHPOC ---
Outpatient Therapy Plan of Care This is a Multidisciplinary Plan of Care that may contain components documented by all disciplines (PT, OT, and ST.) PT Problem 1 PT Problem #1 Knowledge Deficit PT Goal 1 Goal / Goal Update 1* independent with HEP 2* demonstrated correct body mechanics with lifting from the floor Target Visit 8 PT Problem 2 PT Problem #2 Pain PT Goal 1 Goal / Goal Update * monitor pain in back and both knees with increased activity level Target Visit 8 PT Problem 3 PT Problem #3 Impaired Strength PT Goal 1 Goal / Goal Update 1* increase strength of R and L LE to gross 4+/5, to improve mobility and activity level single leg standing x 6 seconds 2* R 3* L Target Visit 8 PT Problem 4 PT Problem #4 Impaired Functional Mobility PT Goal 1 Goal / Goal Update 1* 5 reps sit/stand time of 15 seconds without use of UE 2* 2 minute walking test distance of 550'- to improve community outings Target Visit 8
--- NOTE | 2024-12-13 14:38 | PTOPEVAL1 ---
Assessment and note entered by Audelia Roach, PT Evaluation Information Assessment Status Evaluation ICD-10 Condition Codes (PT) Pain in low back M54.50 Other ICD-10 Condition Codes ( s/p lumbar decompression M48.081,Z98.890 PT) Onset 10-05-24- surgery Subjective Information chronic issues with low back pain; lumbar decompression on 10-05-24; before surgery, had foot drop on R and caused her to fall; have not had any falls since back surgery; decrease pain in back after surgery; last time saw dr- was released and told not to lift over 30# for safety; have increased her activity and returned to gardening, normal home tasks problems with walking down the stairs-- pain in both knees and weakness; decreased balance; does not do any exercises for her legs; do not have fitness club membership; history of R THR 2021; bilateral knee pain with OA - history of injections in knees ~ every 3 months activity: home with ; use hand rail on stairs; able to do her usual home tasks, not lifting much; goal: strengthen legs and core muscles; have better walking balance; Reported Pain Level Pain Score 0: Self Report Additional Pain Score Comments generally no pain in her back; have pain both knees and L ankle- 0-8/10; increase pain: climb ladder and stairs, more activity Assessment PT Clinical Summary Frida is s/p lumbar decompression surgery in September. She reports weakness of legs, decreased balance. Self assessment with Back index rating of 32% limitation in activity level. She is active at home, does not use an assistive device and is increasing her activity level--doing yard work, home activity. Medical history: R THR in 2021; bilateral knee OA with injections ~ every 3 months; chronic back pain, diabetes, HTN. With the evaluation: R and L hip ROM WNL, except hamstring tightness of R >L; ROM R knee 0-110'/ L 125'; 2 minute walking test distance of 500'; on stairs requires 1 hand railing; 5 reps sit/stand time of 19 seconds; decrease strength of R and L LE; Skilled PT services are indicated for modalities to decrease pain; therapeutic exercises and activities to increase LE strength, gait and balance skills, to improve mobility and education for HEP and self management of chronic pain. Plan of Care Interventions Electrical Stimulation,Hot Pack/Cold Pack,Manual Therapy,Neuro Re-education,Patient/Caregiver Education,Therapeutic Activities,Therapeutic Exercise,Ultrasound PT Services Indicated Yes Treatment Frequency and 1 x/wk for 8 visits- 1x/wk per pt request Duration These treatments will address the objective and functional deficits as defined above. The patient will be advanced safely and appropriately in order for the patient to progress towards his/her prior level of function. Additional exercises will be introduced and as well as a comprehensive home exercise program upon discharge, if needed, ?to ensure carryover of functional gains achieved in the clinic. This treatment plan has been reviewed and agreement upon by the patient.
--- NOTE | 2025-02-07 11:49 | OPREHPOC ---
Outpatient Therapy Plan of Care This is a Multidisciplinary Plan of Care that may contain components documented by all disciplines (PT, OT, and ST.) PT Problem 1 PT Problem #1 Knowledge Deficit PT Goal 1 Goal / Goal Update 1* independent with HEP 2* demonstrated correct body mechanics with lifting from the floor 02-07-25: d/c goals met Target Visit 8 Progress Met PT Problem 2 PT Problem #2 Pain PT Goal 1 Goal / Goal Update * monitor pain in back and both knees with increased activity level 02-07-25: d/c goal met Target Visit 8 Progress Met PT Problem 3 PT Problem #3 Impaired Strength PT Goal 1 Goal / Goal Update 1* increase strength of R and L LE to gross 4+/5, to improve mobility and activity level single leg standing x 6 seconds 2* R 3* L 02-07-25: d/c goals met Target Visit 8 Progress Met PT Problem 4 PT Problem #4 Impaired Functional Mobility PT Goal 1 Goal / Goal Update 1* 5 reps sit/stand time of 15 seconds without use of UE 2* 2 minute walking test distance of 550'- to improve community outings 02-07-25: d/c goals not met, but improved: #1 to 17 seconds, #2 to 525' Target Visit 8 Progress Not Met
--- NOTE | 2025-02-07 11:49 | PTOPDC ---
Assessment and note entered by Audelia Roach, PT Assessment Status Discharge ICD-10 Condition Codes (PT) Pain in low back M54.50,Pain in right knee M25.561 ,Pain in left knee M25.562,Weakness R53.1, Encounter for other orthopedic aftercare Z47.89 Other ICD-10 Condition Codes ( s/p lumbar decompression M48.081,Z98.890 PT) Onset 10-05-24- surgery Subjective Information back is better and stronger; been doing the yard work and getting ready for winter; doing the exercises at home; ready to be done with coming for therapy. Reported Pain Level Pain Score 0: Self Report Additional Pain Score Comments no pain in back or L ankle; have pain both knees 0-6/10; increase pain at end of day in knees, take tylenol and can sleep OK ; Assessment PT Clinical Summary Frida has received 7 PT sessions. With today's assessment, compared to initial evaluation: continues to not have pain in her back , but pain in both knees; self assessment with back index rating from 32 to 16% limitation in activity level; 5 rep sit/stand time from 19 to 17 seconds, without use of UE's; 2 minute walking test distance from 500 to 525' with report of less SOB; increase strength of both LE's: single leg standing tolerance on R 12/L 10 seconds; education completed for HEP, body mechanics and lifting postures. The goals were partially achieved. Discharge PT. She is to continue with exercises and activity progression at home. Plan of Care PT Services Indicated No
--- NOTE | 2025-02-07 11:50 | PCPTNOTE ---
pt was 10 minutes late to today's appt.
== END 2025-02-07 14:00 | disposition home or self-care (01) ==
LOC: ANHPT 11:00
PROVIDERS: PCP Neurological Surgery; Visit Provider Neurological Surgery
DX: Z48.89 Encounter for other specified surgical aftercare (principal); M48.061 Spinal stenosis, lumbar region without neurogenic claudication; Z98.890 Other specified postprocedural states
CPT/HCPCS: 97110; 97112; 97116; 97161; 97530